=== PATIENT | male | born 1950 | race Caucasian/White ===

== ENCOUNTER → 2023-04-29 08:55 | Outpatient (REF) | payer MEDICARE, OTHER, SELFPAY ==
[2023-04-29 10:37] LABS: Uric Acid 9.4 mg/dl (3.5-8.5)
[2023-04-30 23:22] LABS: PSA Total 6.3 ng/mL (0.0-4.0)
== END ==
LOC: REG 08:55
PROVIDERS: ATTENDING PHYSICIAN Nurse Practitioner Adult Health
DX: M10.071 Idiopathic gout, right ankle and foot (principal); R97.20 Elevated prostate specific antigen [PSA]
CPT/HCPCS: 36415; 84153; 84154; 84550

== ENCOUNTER → 2023-06-15 13:19 | Outpatient (REF) | payer MEDICARE, OTHER, SELFPAY | LOC: CLAB 13:19 | PROVIDERS: ATTENDING PHYSICIAN Specialist | DX: R97.20 Elevated prostate specific antigen [PSA] (principal) | CPT/HCPCS: 88305; 88344 ==

== ENCOUNTER → 2023-07-02 10:38 | Outpatient (REF) | payer MEDICARE, OTHER, SELFPAY | LOC: MRI 10:38 | PROVIDERS: ATTENDING PHYSICIAN Specialist; FAMILY PHYSICIAN Nurse Practitioner Adult Health | DX: C61 Malignant neoplasm of prostate (principal) | CPT/HCPCS: 72197; A9575 ==

== ENCOUNTER → 2023-07-23 11:06 | Outpatient (REF) | payer MEDICARE, OTHER, SELFPAY ==
[2023-07-23 12:08] LABS: % Basophils 1.6 % (0-2); % Lymphocytes 36.3 % (20.5-51.1); % Neutrophils 48.1 % (42.2-75.2); Absolute Basophils 0.1 10^3/uL (0-0.2); Absolute Eosinophils 0.1 10^3/uL (0-0.7); Absolute Immature Granulocytes 0.1 10^3/uL (0-0.05); Absolute Lymphocytes 1.8 10^3/uL (1.2-3.4); Absolute Monocytes 0.5 10^3/uL (0.1-0.6); Absolute Neutrophils 2.4 10^3/uL (1.4-6.5); Hematocrit 51.7 % (39.0-52.0); Hemoglobin 16.9 g/dL (13.0-18.0); Mean Corp Hgb Conc. 32.7 g/dL (33.0-37.0); Mean Corpuscular Hgb 30.8 pg (27.0-31.0); Mean Corpuscular Volume 94.2 fL (80.0-94.0); Mean Platelet Volume 10.3 fL (7.4-10.4); Nucleated Red Blood Cells % 0 % (-); Platelet Count 187 10^3/uL (130-400); Red Blood Cell Count 5.49 10^6/uL (4.70-6.10); Red Cell Dist. Width 12.9 % (11.5-14.5)
[2023-07-23 12:34] LABS: ALT (SGPT) 44 U/L (0-50); AST (SGOT) 38 U/L (17-59); Albumin 4.1 g/dl (3.5-5.0); Alkaline Phosphatase 72 U/L (38-126); Blood Urea Nitrogen 17 mg/dl (9-20); Calcium 9.8 mg/dl (8.4-10.2); Carbon Dioxide 29 mmol/L (22-30); Chloride 106 mmol/L (98-107); Direct Bilirubin 0.3 mg/dl (0.0-0.4); Glucose 102 mg/dl (70-99); HDL Cholesterol 57 mg/dl; LDL Cholesterol, Calculated 21 mg/dl; Potassium 4.7 mmol/L (3.5-5.1); Sodium 142 mmol/L (135-145); Total Bilirubin 0.6 mg/dl (0.2-1.3); Total Cholesterol 104 mg/dl (50-199); Total Protein 6.6 g/dl (6.3-8.2); Triglyceride 131 mg/dl (10-149); Uric Acid 5.6 mg/dl (3.5-8.5); Very Low Density Lipoprotein 26 mg/dl (0-30); eGFR > 60.00
[2023-07-23 12:55] LABS: TSH Reflex To Free T4 1.05 uIU/ml (0.47-4.68)
[2023-07-23 14:24] LABS: Glycohemoglobin (HgbA1c) 5.4 % (4.0-5.6)
== END ==
LOC: REG 11:06
PROVIDERS: ATTENDING PHYSICIAN Internal Medicine Cardiovascular Disease; FAMILY PHYSICIAN Nurse Practitioner Adult Health; REFERRING PHYSICIAN Specialist
DX: I25.10 Atherosclerotic heart disease of native coronary artery without angina pectoris (principal); Z98.890 Other specified postprocedural states; Z95.5 Presence of coronary angioplasty implant and graft; Z78.9 Other specified health status; R73.01 Impaired fasting glucose; M10.071 Idiopathic gout, right ankle and foot; I10 Essential (primary) hypertension; E55.9 Vitamin D deficiency, unspecified; Z79.899 Other long term (current) drug therapy; Z13.29 Encounter for screening for other suspected endocrine disorder; Z13.220 Encounter for screening for lipoid disorders; Z00.00 Encounter for general adult medical examination without abnormal findings; R97.20 Elevated prostate specific antigen [PSA]; R73.03 Prediabetes
CPT/HCPCS: 36415; 80053; 80061; 80076; 82306; 83036; 84443; 84550; 85025

== ENCOUNTER 2023-08-17 06:12 | Inpatient (IN) | payer MEDICARE, OTHER, SELFPAY ==
[2023-08-13 10:31] VITALS: BMI 27.5
[2023-08-13 11:51] LABS: INR 1.06; PT 13.6 Sec (11.4-14.6)
[2023-08-13 11:52] LABS: APTT 27.7 Sec (23.4-35.0)
[2023-08-17] VITALS (16 sets, daily range): BP systolic 113–178; BP diastolic 59–95; BMI 27.5
[2023-08-17] MEDS: NORMOSOL-R 1000 IV (06:40)
[2023-08-17] MEDS: NEOMYCIN ENEMA 1 BOTTLE RECTAL (06:47)
--- NOTE | 2023-08-17 09:30 | W.PN.ADMIT ---
Progress Note - Admit
Progress Note - Admit
pt underwent RPP
rectal repair performed
admit to tele per cardiology request
npo/antibx
[2023-08-17 10:12] LABS: Mean Corp Hgb Conc. 34.1 g/dL (33.0-37.0); Mean Corpuscular Volume 90.9 fL (80.0-94.0); Mean Platelet Volume 9.6 fL (7.4-10.4); Platelet Count 154 10^3/uL (130-400); Red Blood Cell Count 4.84 10^6/uL (4.70-6.10); Red Cell Dist. Width 12.7 % (11.5-14.5); White Blood Cell Count 9.1 10^3/uL (4.8-10.8)
[2023-08-17 10:25] LABS: Blood Urea Nitrogen 11 mg/dl (9-20); Calcium 8.2 mg/dl (8.4-10.2); Carbon Dioxide 24 mmol/L (22-30); Chloride 104 mmol/L (98-107); Estimated Creatinine Clearance 73 ml/min; Glucose 132 mg/dl (70-99); Potassium 4.9 mmol/L (3.5-5.1); Sodium 137 mmol/L (135-145); eGFR > 60.00
[2023-08-17] MEDS: NSS with KCL 20 MEQ 1000 IV ×2 (10:28→20:02)
--- NOTE | 2023-08-17 12:37 | PTCARENOTE ---
Pt arrived to [facility] from PACU s/p prostatectomy. Pt has Son in place draining yellow/green urine, pen jenny drain with 4x4 and abd pads over top with tape. IVF infusing, 2L NC satting 96%. Pt states no pain at this time. Bed locked in lowest
position, call luis within reach, pt and oriented to call luis and room.
[2023-08-17] MEDS: TORADOL 15 MG IV ×2 (15:14→21:19)
[2023-08-17] MEDS: ACULAR 0.5% EYE DROPS 1 DROP LEFT EYE ×2 (17:42→20:02)
--- NOTE | 2023-08-17 18:01 | W.PN.UPDATE ---
Update Note
Progress Note Update
Saw patient briefly postoperatively. He is feeling well. He is having no chest pain. He is not short of breath.
No acute events on telemetry.
Resumption of aspirin per urology.
[2023-08-17] MEDS: COLACE 100 MG PO (20:01)
[2023-08-17] MEDS: ASPIR LOW (ENTERIC COATED) 81 MG PO (21:19)
[2023-08-18 03:45] VITALS: BP 141/69
--- NOTE | 2023-08-18 03:45 | PTCARENOTE ---
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
[2023-08-18] MEDS: TORADOL 15 MG IV ×3 (05:34→21:56)
[2023-08-18] MEDS: NSS with KCL 20 MEQ 1000 IV (05:36)
[2023-08-18 05:41] LABS: Hematocrit 41.6 % (39.0-52.0); Hemoglobin 13.9 g/dL (13.0-18.0); Mean Corp Hgb Conc. 33.4 g/dL (33.0-37.0); Mean Corpuscular Volume 92.7 fL (80.0-94.0); Mean Platelet Volume 9.8 fL (7.4-10.4); Platelet Count 155 10^3/uL (130-400); Red Blood Cell Count 4.49 10^6/uL (4.70-6.10); Red Cell Dist. Width 12.4 % (11.5-14.5); White Blood Cell Count 9.7 10^3/uL (4.8-10.8)
--- NOTE | 2023-08-18 06:25 | W.PN.UPDATE ---
Update Note
Progress Note Update
K level is 6.4 this am, patient currently on IVF with KCL 20meq will d/c. Lokelma 10g ordered and will repeat bmp in few hrs.
[2023-08-18 06:28] LABS: Blood Urea Nitrogen 16 mg/dl (9-20); Carbon Dioxide 22 mmol/L (22-30); Chloride 108 mmol/L (98-107); Estimated Creatinine Clearance 73 ml/min; Glucose 125 mg/dl (70-99); Magnesium 2.5 mg/dl (1.6-2.3); Potassium 6.4 mmol/L (3.5-5.1); Sodium 137 mmol/L (135-145); eGFR > 60.00
[2023-08-18] MEDS: LOKELMA 10 GRAM PO (06:32)
[2023-08-18 07:10] VITALS: BP 142/72
--- NOTE | 2023-08-18 07:41 | W.PN.URO.CBU ---
Today's Communication / Plan
-
UOOB/clear liquid diet
recheck K
cardiology following
wound checks/antibx and drain
Assessment / Plan
-
s/p RPP with rectal repair
pt looks great
with rectal repair- want to avoid any bowel stimulation
will recheck K/stop IVF with K/continue tele
clear liquid diet
continue rocephin
UOOB/ambulate
continue wound checks and drain
cardiology following
Diagnosis
-
Date of Service: August 18, 2023
-
Patient Diagnosis:
prostate cancer
Post Op Day:
RPP 08/16- rectal repair
Subjective
-
pt looks and feels great
urine clear
hgb stable
+ flatus
pt has some ? arrythmia on tele- K level up to 6- was given lokema- resulted in small loose bowel movement
dressing removed- wound looks good- c/d/i- no stool drainage from wound or drain
Objective
-
Vital Signs
Temp Pulse Resp BP Pulse Ox
97.6 F 60 17 142/72 96
08/18/23 07:10 08/18/23 07:10 08/18/23 07:10 08/18/23 07:10 08/18/23 07:10
Intake and Output
08/17/23 08/18/23 08/19/23
06:59 06:59 06:59
Intake Total 1370 / 1370
Output Total 1950 / 1950
Balance -580 / -580
Intake:
Oral fluids 120 / 120
IV fluids (Total) 1250 / 1250
NSS with KCL 20 MEQ 20 meq In 1 175 / 175
,000 ml @ 100 mls/hr IV .Q10H
VIANCA Rx#:[id number]
normosol 75 / 75
Output:
Urine, Mathew 1949
Laboratory Results
08/18/23 05:00
Review of Systems
-
Constitutional: Fatigue
Respiratory: No Symptoms
Cardiac: No Symptoms
Abdomen/GI: No Symptoms
Physical Exam
-
General - well developed, well nourished, no acute distress
Abdomen - soft, non-tender, positive bowel sounds
Genitalia - normal- mathew in place
Rectal - normal
Skin - warm & dry with no rash
Neuro - AOx3, no motor deficits
Extremities - no clubbing, no cyanosis, no edema
Incision - clean, dry- madalyn in place
[2023-08-18] MEDS: VITAMIN D3 (cholecalciferol) 10 MCG PO (08:21)
[2023-08-18] MEDS: PROTONIX 40 MG PO (08:21)
[2023-08-18] MEDS: ZYLOPRIM 200 MG PO (08:21)
[2023-08-18] MEDS: DETROL LA 4 MG PO (08:21)
[2023-08-18] MEDS: ZYRTEC 10 MG PO (08:22)
[2023-08-18] MEDS: COSOPT EYE DROPS 1 DROP LEFT EYE (08:22)
[2023-08-18] MEDS: PRED FORTE 1% EYE DROPS 1 DROP LEFT EYE (08:22)
[2023-08-18] MEDS: ACULAR 0.5% EYE DROPS 1 DROP LEFT EYE ×3 (08:22→20:25)
[2023-08-18] MEDS: ZESTRIL 10 MG PO (08:22)
[2023-08-18] MEDS: COLACE 100 MG PO ×2 (08:22→20:24)
[2023-08-18 11:20] VITALS: BP 118/57
[2023-08-18] MEDS: STERILE WATER FOR INJECTION 10 ML IV (11:29)
[2023-08-18] MEDS: ROCEPHIN 1000 MG IV (11:30)
[2023-08-18 11:48] LABS: Blood Urea Nitrogen 17 mg/dl (9-20); Carbon Dioxide 23 mmol/L (22-30); Chloride 105 mmol/L (98-107); Estimated Creatinine Clearance 84 ml/min; Glucose 118 mg/dl (70-99); Potassium 4.8 mmol/L (3.5-5.1); Sodium 135 mmol/L (135-145); eGFR > 60.00
--- NOTE | 2023-08-18 14:54 | CM ---
met with patient and his at bedside.patient lives with spouse in [place] at [facility].he has a walk in shower but no dme..he amb i and is i with his adl.his pcp is [facility] .he uses [facility] in
[place].he has never had a vn at home or been in ip rehab.
patient is sp radical prostatectomy pod#1,iv rocephin,tolerating clear liquids,has mathew catheter and madalyn drain.cards following.referral called to [facility] for mathew and wound care.patient signed imm letter.Plan:dc home with [facility].
[2023-08-18 15:45] VITALS: BP 122/67
[2023-08-18 20:05] VITALS: BP 123/67
[2023-08-18] MEDS: ASPIR LOW (ENTERIC COATED) PO (22:00)
[2023-08-18 23:04] VITALS: BP 124/68
--- NOTE | 2023-08-19 01:37 | PTCARENOTE ---
22:00 pt refusing his asa this evening, verbalizing he received in the morning. Orders reviewed with pt and educated that it does not appear as an am med that he received. 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
[2023-08-19 04:30] VITALS: BP 119/65
[2023-08-19] MEDS: TORADOL 15 MG IV (05:28)
[2023-08-19 05:41] LABS: Hematocrit 40.3 % (39.0-52.0); Hemoglobin 13.2 g/dL (13.0-18.0); Mean Corp Hgb Conc. 32.8 g/dL (33.0-37.0); Mean Corpuscular Hgb 30.6 pg (27.0-31.0); Mean Corpuscular Volume 93.5 fL (80.0-94.0); Platelet Count 148 10^3/uL (130-400); Red Blood Cell Count 4.31 10^6/uL (4.70-6.10); Red Cell Dist. Width 12.5 % (11.5-14.5); White Blood Cell Count 8.5 10^3/uL (4.8-10.8)
[2023-08-19 06:00] VITALS: BMI 27.2
[2023-08-19 06:02] LABS: Blood Urea Nitrogen 18 mg/dl (9-20); Calcium 8.8 mg/dl (8.4-10.2); Carbon Dioxide 27 mmol/L (22-30); Chloride 107 mmol/L (98-107); Estimated Creatinine Clearance 73 ml/min; Glucose 86 mg/dl (70-99); Potassium 5.1 mmol/L (3.5-5.1); Sodium 137 mmol/L (135-145); eGFR > 60.00
--- NOTE | 2023-08-19 07:34 | W.PN.URO.CBU ---
Today's Communication / Plan
-
continue ambulation and clears
Assessment / Plan
-
s/p RPP with rectal repair
pt looks great
with rectal repair- want to avoid any bowel stimulation
K normalized
continue clears/ambulation and antibx- with bowel movement- begin low residue diet
Diagnosis
-
Date of Service: August 19, 2023
-
Patient Diagnosis:
prostate cancer
Post Op Day:
RPP 08/16- rectal repair
Subjective
-
pt doing well
eating- flatus- no bowel movement since yesterday
vss/ labs ok including serial k checks
wound is dry
Objective
-
Vital Signs
Temp Pulse Resp BP Pulse Ox
98.1 F 61 20 119/65 95
08/19/23 04:30 08/19/23 04:30 08/19/23 04:30 08/19/23 04:30 08/19/23 04:30
Intake and Output
08/18/23 08/19/23 08/20/23
06:59 06:59 06:59
Intake Total 1370 / 1370 1680 / 1680
Output Total 1949
Balance -580 / -580 -520 / -520
Intake:
Oral fluids 120 / 120 1680 / 1680
IV fluids (Total) 1250 / 1250
NSS with KCL 20 MEQ 20 meq In 1 175 / 175
,000 ml @ 100 mls/hr IV .Q10H
VIANCA Rx#:[id number]
normosol 75 / 75
Output:
Urine, Mathew 1949 / 2199
Laboratory Results
08/19/23 05:05
08/19/23 05:05
Review of Systems
-
Constitutional: No Symptoms
Respiratory: No Symptoms
Cardiac: No Symptoms
Abdomen/GI: No Symptoms
Physical Exam
-
General -no acute distress
Abdomen - soft, non-tender, positive bowel sounds
Genitalia - normal- mathew in place
Rectal - normal
Skin - warm & dry with no rash
Neuro - AOx3, no motor deficits
Extremities - no clubbing, no cyanosis, no edema
Incision - clean, dry- drain in place
[2023-08-19 07:49] VITALS: BP 140/75
[2023-08-19] MEDS: ZESTRIL 10 MG PO (08:41)
[2023-08-19] MEDS: DETROL LA 4 MG PO (08:41)
[2023-08-19] MEDS: COLACE 100 MG PO ×2 (08:41→20:27)
[2023-08-19] MEDS: COSOPT EYE DROPS 1 DROP LEFT EYE (08:41)
[2023-08-19] MEDS: ZYLOPRIM 200 MG PO (08:41)
[2023-08-19] MEDS: VITAMIN D3 (cholecalciferol) 10 MCG PO (08:41)
[2023-08-19] MEDS: ASPIR LOW (ENTERIC COATED) 81 MG PO (08:41)
[2023-08-19] MEDS: ZYRTEC 10 MG PO (08:41)
[2023-08-19] MEDS: PROTONIX 40 MG PO (08:41)
[2023-08-19] MEDS: ACULAR 0.5% EYE DROPS 1 DROP LEFT EYE ×3 (08:42→21:09)
[2023-08-19] MEDS: PRED FORTE 1% EYE DROPS 1 DROP LEFT EYE (08:42)
--- NOTE | 2023-08-19 09:07 | W.PN.CD ---
Today's Communication / Plan
-
62 year old male known to me from previous outpatient visits. Patietntwith history of multivessel coronary stenting, AAA repair,who underwent prostate sturgery
CAD . History of multivessel stenting
- stable without angina
-continue ASA
.
Post urologic surgery - Radical perineal prostatectomy with seminal
vesiculectomy and bladder neck reconstruction. 08/17/23
- post op care per urology
Impression / Plan
-
doing well
stable on telemetry
back on aspirin and tolerating well
call if additional assistance required
Physical Exam
Vital Signs/Labs
Vital Signs
Temp Pulse Resp BP Pulse Ox
97.6 F 62 18 140/75 95
08/19/23 07:49 08/19/23 07:49 08/19/23 07:49 08/19/23 07:49 08/19/23 07:49
08/18/23 08/19/23 08/20/23
06:59 06:59 06:59
Actual Weight 76.345 kg
08/19/23 05:05
08/19/23 05:05
PT 13.6 Sec (11.4-14.6) 08/13/23 08:59
INR 1.06 08/13/23 08:59
APTT 27.7 Sec (23.4-35.0) 08/13/23 08:59
Magnesium 2.5 mg/dl (1.6-2.3) H 08/18/23 05:00
Physical Exam
Constitutional: No acute distress
Cardiovascular: Rhythm & rate is regular
Respiratory: Respiratory effort normal
Neuro/Psych: Alert
Other: Other (no edema)
Data Reviewed
-
Date of Service: August 19, 2023
Medical Decision Making: Reviewed Test Results
Medical Tests (PFT, Pathology etc): Report Reviewed by me
Labs: Labs Reviewed by me
[2023-08-19] MEDS: ROCEPHIN 1000 MG IV (12:10)
[2023-08-19] MEDS: STERILE WATER FOR INJECTION 10 ML IV (12:10)
[2023-08-19 12:17] VITALS: BP 155/84
--- NOTE | 2023-08-19 14:15 | VNURNOTE ---
Home Health Liaison met with patient at 1200 to discuss [facility] nurse visits, schedule and homebound status. Patient is agreeable and understands that visits at home will be 2-3 x per week to assess and teach medical management and catheter care.
[facility] brochure provided with contact information. Patient is aware that [facility] will contact him for start of care in 1-2 days after discharge from .
[facility] referral completed in [facility].
[2023-08-19] MEDS: MOTRIN 400 MG PO ×2 (15:01→21:08)
[2023-08-19 15:47] VITALS: BP 136/75
--- NOTE | 2023-08-19 16:03 | CM ---
Addendum entered by Allie Martin 08/19/23 16:06:
Plan: discharge to home with home health services with [facility]
Original Note:
Chart reviewed: s/p RPP with rectal repair; continue ambulation and clear liquids;
CM will continue to monitor for DC needs
[2023-08-19 20:00] VITALS: BP 135/75
[2023-08-19 22:55] VITALS: BP 148/86
[2023-08-20 03:04] VITALS: BP 113/70
[2023-08-20 06:00] VITALS: BMI 26.9
--- NOTE | 2023-08-20 06:41 | W.PN.URO.CBU ---
Today's Communication / Plan
-
likely discharge later today
Assessment / Plan
-
s/p RPP with rectal repair
pt looks great
tolerating low residue diet/bowel movement/ no evid of wound leak
will observe until lunch today- if stable- to remove madalyn and discharge home
all instructions reviewed
Diagnosis
-
Date of Service: August 20, 2023
-
Patient Diagnosis:
prostate cancer
Post Op Day:
RPP 08/16- rectal repair
Subjective
-
pt doing great
did have a bowel movement yesterday
urine clear
wound looks great with minimal to no drainage
Objective
-
Vital Signs
Temp Pulse Resp BP Pulse Ox
98.0 F 62 20 113/70 97
08/20/23 03:04 08/20/23 03:04 08/20/23 03:04 08/20/23 03:04 08/20/23 03:04
Intake and Output
08/18/23 08/19/23 08/20/23
06:59 06:59 06:59
Intake Total 1370 / 1370 1680 / 1680 2400 / 2400
Output Total 1949 / 1949 220 / 2200 2680 / 2680
Balance -580 / -580 -520 / -520 -280 / -280
Intake:
Oral fluids 120 / 120 1680 / 1680 2400 / 2400
IV fluids (Total) 1250 / 1250
NSS with KCL 20 MEQ 20 meq In 1 175 / 175
,000 ml @ 100 mls/hr IV .Q10H
VIANCA Rx#:[id number]
normosol 75 / 75
Output:
Urine, Mathew 1949 / 1949 2200 / 2200 2380 / 2380
Urine, Voided 300 / 300
Laboratory Results
08/19/23 05:05
08/19/23 05:05
Review of Systems
-
Constitutional: Fatigue
Respiratory: No Symptoms
Cardiac: No Symptoms
Abdomen/GI: No Symptoms
Physical Exam
-
General - no acute distress
Abdomen - soft, non-tender, positive bowel sounds, no CVAT, no incisional pain or distention
Genitalia - normal- mathew in place
Rectal - normal
Skin - warm & dry with no rash
Neuro - AOx3, no motor deficits
Extremities - no clubbing, no cyanosis, no edema
Incision - clean, dry
[2023-08-20 07:10] VITALS: BP 135/75
[2023-08-20] MEDS: ZESTRIL 10 MG PO (08:36)
[2023-08-20] MEDS: ACULAR 0.5% EYE DROPS 1 DROP LEFT EYE (08:36)
[2023-08-20] MEDS: COLACE 100 MG PO (08:37)
[2023-08-20] MEDS: DETROL LA 4 MG PO (08:38)
[2023-08-20] MEDS: ZYLOPRIM 200 MG PO (08:38)
[2023-08-20] MEDS: ZYRTEC 10 MG PO (08:38)
[2023-08-20] MEDS: PRED FORTE 1% EYE DROPS 1 DROP LEFT EYE (08:39)
[2023-08-20] MEDS: COSOPT EYE DROPS 1 DROP LEFT EYE (08:39)
[2023-08-20] MEDS: PROTONIX 40 MG PO (08:39)
[2023-08-20] MEDS: VITAMIN D3 (cholecalciferol) 10 MCG PO (08:39)
[2023-08-20] MEDS: ASPIR LOW (ENTERIC COATED) 81 MG PO (08:39)
[2023-08-20] MEDS: STERILE WATER FOR INJECTION 10 ML IV (10:38)
[2023-08-20] MEDS: ROCEPHIN 1000 MG IV (10:39)
[2023-08-20] MEDS: MOTRIN 400 MG PO (12:42)
--- NOTE | 2023-08-20 14:13 | W.DS.TRANS ---
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
-
Discharge Instructions:
Sleep Apnea Risk Intermediate
Discharge Diagnosis/Procedures you had a radical perineal prostatectomy
Diet Low Residue
Activity No strenuous activity
Additional Activity no lifting over 10lbs
Driving Restrictions No driving
Bathing Restrictions shower after every bowel movement
Other Services VN
Instructions:
Stand-Alone Forms:
Changes to Home Medications: No
Discharge Medications:
DC Medications w/original date entered in [employer]
Aspirin Enteric Coated 81 mg PO DAILY Blood Clot Prevention/Tx 08/18/13
cholecalciferol (vitamin D3) 10 mcg (400 unit) tablet (Vitamin D3) 400 unit PO DAILY Supplement 08/18/13
nitroglycerin 0.4 mg sublingual tablet 0.4 mg sublingual [id number] PRN chest pain #25 tabs 08/19/13
Ketorolac Tromethamine 1 drp BOTH EYES TID Eye Condition 08/12/23
allopurinol 200 mg tablet 200 mg PO DAILY Gout 08/12/23
cetirizine 10 mg tablet (Zyrtec) 10 mg PO DAILY Allergies 08/12/23
coenzyme Q10 100 mg capsule (Co Q-10) 100 mg PO DAILY Supplement 08/12/23
dorzolamide 22.3 mg-timolol 6.8 mg/mL eye drops 1 drp ophthalmic (eye) DAILY Eye Condition 08/12/23
evolocumab 140 mg/mL subcutaneous syringe (Repatha Syringe) 140 mg SC Q2W High Cholesterol 08/12/23
lisinopril 10 mg tablet 10 mg PO DAILY Blood Pressure 08/12/23
omeprazole 20 mg capsule,delayed release 20 mg PO DAILY Gastrointestinal Issue 08/12/23
prednisolone acetate 1 % eye drops,suspension 1 drp ophthalmic (eye) DAILY Eye Condition 08/12/23
polyethylene glycol 3350 17 gram oral powder packet (Miralax) 17 g PO DAILY #30 ea 08/20/23
sulfamethoxazole 400 mg-trimethoprim 80 mg tablet (Bactrim) 1 tab PO HS #14 tabs 08/20/23
tramadol 50 mg tablet 50 mg PO Q8H PRN Pain #20 tabs 08/20/23
Home Medication Changes
Pending Results: No
--- NOTE | 2023-08-20 14:21 | CM ---
met with patient at bedside.he is sp radical prostatectomy. he is tolerating a low residue diet.drain removed.imm letter signed.patient is stable for discharge home with vn.
[2023-08-20 15:00] VITALS: BP 129/84
== END 2023-08-20 15:13 | disposition home or self-care (01) | DRG 708 ==
LOC: 2 SOUTH 06:12
PROVIDERS: Nurse Practitioner Family; ADMITTING PHYSICIAN Specialist; FAMILY PHYSICIAN Nurse Practitioner Adult Health
PROC: 0VT00ZZ Resection of Prostate, Open Approach (ICD-10-PCS; 2023-08-17)
PROC: 0TQC0ZZ Repair Bladder Neck, Open Approach (ICD-10-PCS; 2023-08-17)
PROC: 0VT30ZZ Resection of Bilateral Seminal Vesicles, Open Approach (ICD-10-PCS; 2023-08-17)
DX: C61 Malignant neoplasm of prostate (principal)
CPT/HCPCS: 88305; 88309; 88332; 36415; 80048; 83735; 85027; 85610; 85730; 86850; 86900; 86901; 88331; 88344; 93005; A4648

== ENCOUNTER 2023-10-07 06:22 | Outpatient (RCR) | payer MEDICARE, OTHER, SELFPAY | END 2023-10-07 23:59 | disposition home or self-care (01) | LOC: RPT 06:22 | PROVIDERS: ATTENDING PHYSICIAN Specialist; FAMILY PHYSICIAN Nurse Practitioner Adult Health | DX: R39.81 Functional urinary incontinence (principal); M62.89 Other specified disorders of muscle; C61 Malignant neoplasm of prostate; Z98.890 Other specified postprocedural states; Z73.6 Limitation of activities due to disability | CPT/HCPCS: 97162; 97530 ==

== ENCOUNTER 2023-11-18 10:07 | Outpatient (RCR) | payer MEDICARE, OTHER, SELFPAY | END 2023-11-18 23:59 | disposition home or self-care (01) | LOC: RPT 10:07 | PROVIDERS: ATTENDING PHYSICIAN Specialist; FAMILY PHYSICIAN Nurse Practitioner Adult Health | DX: R39.81 Functional urinary incontinence (principal); M62.89 Other specified disorders of muscle; C61 Malignant neoplasm of prostate; Z73.6 Limitation of activities due to disability | CPT/HCPCS: 97110; 97140; 97530 ==

== ENCOUNTER → 2023-12-02 11:01 | Outpatient (REF) | payer MEDICARE, OTHER, SELFPAY ==
[2023-12-02 12:25] LABS: PSA, Total - Diagnostic < 0.06 ng/ml (0.0-4.0)
== END ==
LOC: REG 11:01
PROVIDERS: ATTENDING PHYSICIAN Specialist; FAMILY PHYSICIAN Nurse Practitioner Adult Health
DX: C61 Malignant neoplasm of prostate (principal)
CPT/HCPCS: 36415; 84153

== ENCOUNTER 2023-12-16 09:54 | Outpatient (RCR) | payer MEDICARE, OTHER, SELFPAY | END 2023-12-16 23:59 | disposition home or self-care (01) | LOC: RPT 09:54 | PROVIDERS: ATTENDING PHYSICIAN Specialist; FAMILY PHYSICIAN Nurse Practitioner Adult Health | DX: R39.81 Functional urinary incontinence (principal); M62.89 Other specified disorders of muscle; C61 Malignant neoplasm of prostate; Z73.6 Limitation of activities due to disability | CPT/HCPCS: 97110; 97140; 97530 ==

== ENCOUNTER 2023-12-30 09:51 | Outpatient (RCR) | payer MEDICARE, OTHER, SELFPAY | END 2023-12-30 13:22 | disposition home or self-care (01) | LOC: RPT 09:51 | PROVIDERS: ATTENDING PHYSICIAN Specialist; FAMILY PHYSICIAN Nurse Practitioner Adult Health | DX: R39.81 Functional urinary incontinence (principal); M62.89 Other specified disorders of muscle; C61 Malignant neoplasm of prostate; Z73.6 Limitation of activities due to disability; Z90.79 Acquired absence of other genital organ(s) | CPT/HCPCS: 97110; 97530 ==

== ENCOUNTER → 2024-05-02 11:18 | Outpatient (REF) | payer MEDICARE, OTHER, SELFPAY ==
[2024-05-02 13:13] LABS: PSA, Total - Diagnostic < 0.06 ng/ml (0.0-4.0)
== END ==
LOC: REG 11:18
PROVIDERS: ATTENDING PHYSICIAN Specialist; FAMILY PHYSICIAN Nurse Practitioner Adult Health
DX: C61 Malignant neoplasm of prostate (principal)
CPT/HCPCS: 36415; 84153

== ENCOUNTER → 2024-08-04 08:30 | Outpatient (REF) | payer MEDICARE, OTHER, SELFPAY ==
[2024-08-04 09:33] LABS: % Basophils 1.1 % (0-2); % Eosinophils 1.1 % (0-6); % Immature Granulocytes 2.3 % (0-0.5); % Lymphocytes 29.9 % (20.5-51.1); % Monocytes 8.8 % (1.7-9.3); % Neutrophils 56.8 % (42.2-75.2); Absolute Basophils 0.1 10^3/uL (0-0.2); Absolute Eosinophils 0.1 10^3/uL (0-0.7); Absolute Immature Granulocytes 0.2 10^3/uL (0-0.05); Absolute Lymphocytes 2.3 10^3/uL (1.2-3.4); Absolute Monocytes 0.7 10^3/uL (0.1-0.6); Absolute Neutrophils 4.3 10^3/uL (1.4-6.5); Hematocrit 51.8 % (39.0-52.0); Hemoglobin 17.2 g/dL (13.0-18.0); Mean Corp Hgb Conc. 33.2 g/dL (33.0-37.0); Mean Corpuscular Hgb 31.2 pg (27.0-31.0); Mean Corpuscular Volume 93.8 fL (80.0-94.0); Mean Platelet Volume 10.6 fL (7.4-10.4); Nucleated Red Blood Cells % 0 % (-); Platelet Count 147 10^3/uL (130-400); Red Blood Cell Count 5.52 10^6/uL (4.70-6.10); Red Cell Dist. Width 13.2 % (11.5-14.5); White Blood Cell Count 7.5 10^3/uL (4.8-10.8)
[2024-08-04 09:37] LABS: INR 0.94; PT 12.8 Sec (11.4-14.6)
[2024-08-04 09:38] LABS: APTT 27.4 Sec (23.4-35.0)
== END ==
LOC: REG 08:30
PROVIDERS: ATTENDING PHYSICIAN Internal Medicine Cardiovascular Disease
DX: I25.10 Atherosclerotic heart disease of native coronary artery without angina pectoris (principal); T14.8XXA Other injury of unspecified body region, initial encounter
CPT/HCPCS: 36415; 85025; 85610; 85730

== ENCOUNTER → 2024-11-07 07:51 | Outpatient (REF) | payer MEDICARE, OTHER, SELFPAY ==
[2024-11-07 09:59] LABS: PSA, Total - Diagnostic < 0.06 ng/ml (0.0-4.0)
== END ==
LOC: REG 07:51
PROVIDERS: ATTENDING PHYSICIAN Specialist; FAMILY PHYSICIAN Nurse Practitioner Adult Health
DX: C61 Malignant neoplasm of prostate (principal)
CPT/HCPCS: 36415; 84153

== ENCOUNTER → 2024-11-14 12:06 | Outpatient (REF) | payer MEDICARE, OTHER, SELFPAY ==
[2024-11-14 13:24] LABS: Hematocrit 53.6 % (39.0-52.0); Hemoglobin 17.7 g/dL (13.0-18.0); Mean Corp Hgb Conc. 33.0 g/dL (33.0-37.0); Mean Corpuscular Volume 94.2 fL (80.0-94.0); Nucleated Red Blood Cells % 0 % (-); Platelet Count 148 10^3/uL (130-400); Red Cell Dist. Width 12.7 % (11.5-14.5)
[2024-11-14 13:55] LABS: ALT (SGPT) 34 U/L (0-50); AST (SGOT) 32 U/L (17-59); Albumin 4.6 g/dl (3.5-5.0); Alkaline Phosphatase 75 U/L (38-126); Calcium 10.2 mg/dl (8.4-10.2); Carbon Dioxide 29 mmol/L (22-30); Chloride 106 mmol/L (98-107); Glucose 93 mg/dl (70-99); HDL Cholesterol 57 mg/dl; LDL Cholesterol, Calculated 44 mg/dl; Potassium 5.2 mmol/L (3.5-5.1); Sodium 141 mmol/L (135-145); Total Protein 7.1 g/dl (6.3-8.2); Uric Acid 5.1 mg/dl (3.5-8.5); Very Low Density Lipoprotein 15 mg/dl (0-30); eGFR > 60.00
[2024-11-14 13:57] LABS: Glycohemoglobin (HgbA1c) 5.2 % (4.0-5.6)
[2024-11-14 14:04] LABS: Blood Urea Nitrogen 21 mg/dl (9-20)
[2024-11-14 14:12] LABS: Vitamin D, 25-OH*** 56.0 ng/mL (30-80)
== END ==
LOC: REG 12:06
PROVIDERS: ATTENDING PHYSICIAN Nurse Practitioner Adult Health
DX: Z00.00 Encounter for general adult medical examination without abnormal findings (principal); E78.00 Pure hypercholesterolemia, unspecified; R73.03 Prediabetes; E55.9 Vitamin D deficiency, unspecified
CPT/HCPCS: 36415; 80053; 80061; 82306; 83036; 84443; 84550; 85025

== ENCOUNTER 2024-11-29 11:48 | Emergency (ER) | payer MEDICARE, OTHER, SELFPAY ==
[2024-11-29 11:48] VITALS: BMI 25.0
[2024-11-29 11:54] VITALS: BP 137/82
--- NOTE | 2024-11-29 12:39 | ED.GENMED ---
History of Present Illness
General
Chief Complaint: Nose Bleed
Source: patient
Exam Limitations: none
Time Seen by Provider: 11/29/24 12:03
Nursing documentation reviewed up to this point in time: agreed with
History of Present Illness
History of Present Illness:
74 yr old male presents to the ED for evaluation of nose bleed. 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 He did have nosebleed 1 wk ago which resolved on its own. PT is on ASA only no other blood thinners.
Past History
Past History
ED Past Medical History: HTN
Social History
Tobacco: Former smoker
Alcohol: None
Drug: None
Personal:
Living: with family
Phy Exam
General Physical Exam
General Presentation: no apparent distress
General age: appears stated age
General Skin: warm and dry
General Habitus: normal
General Mental: alert
General Hydration: appears well hydrated
ENT Exam
ENT Exam: other (+ bleeding from right nares + clots )
Cardiovascular Exam
Cardiovascular Exam: regular rate/rhythm, no murmur and normal peripheral pulses
Pulmonary Exam
Pulmonary Exam: lungs clear and no respiratory distress
Neurological Exam
Neurological Exam: alert and oriented x3
Musculoskeletal Exam
Musculoskeletal Exam: full ROM
Skin Exam
Skin Exam: normal color and warm/dry
Psychiatric Exam
Psychiatric Exam: normal mood/affect
Course
Orders/Labs/Results
Orders:
Orders
11/29/24 12:37
Complete Blood Count/With Diff Urgent
Comprehensive Metabolic Panel Urgent
Vital Signs
Initial and Last Documented VS:
Initial Vital Signs
Temp Pulse Resp BP Pulse Ox
98.7 F 78 18 137/82 96
11/29/24 11:54 11/29/24 11:54 11/29/24 11:54 11/29/24 11:54 11/29/24 11:54
Last Documented Vital Signs
Temp Pulse Resp BP Pulse Ox
98.7 F 78 18 137/82 96
11/29/24 11:54 11/29/24 11:54 11/29/24 11:54 11/29/24 11:54 11/29/24 12:41
Procedures
Nosebleed
Drug treatment: Epinephrine
Treatment: other (Rapid Rhino)
Post treatment bleeding: none- good control
MDM/Problems Addressed
MDM/Problems Addressed:
As documented patient is a 74-year-old male presented with epistaxis from the right nares for the past 1 hour prior to arrival. He is on aspirin only. Patient has significant bleeding however bleeding was resolved after rapid Rhino was inserted.
Patient tolerated the procedure well. He did not want blood work which is reasonable as his vital signs are stable he is very well-appearing. Will DC with outpatient follow-up with ENT for packing removal in the next 2 days. Strict return
precautions reviewed.
*Pulse Oximetry
SaO2: 96
Oxygen Mode of Delivery: Room air
Patient hypoxic: no
*Critical Care Note
Total Time (30-74mins, 75-104mins- exclusive of procedures): Not Applicable
ED Attending Note
-
Portions of this chart may have been created with voice recognition software.� Occasional wrong word or��sound alike� substitutions may have occurred due to the inherent limitations of voice recognition software.
Discharge Plan
Departure
Patient Disposition: Home (Routine Discharge)
Date of Disposition: 11/29/24
Time of Disposition: 13:47
Patient with high blood pressure during this ER visit?: Yes
Condition: Fair
Covid-19: Not Applicable
Discharge Problem:
Acute anterior epistaxis
Instructions: Nosebleeds (DC), BLOOD PRESSURE
Prescriptions:
No Action
Aspirin Enteric Coated 81 MG
81 mg PO DAILY
cholecalciferol (vitamin D3) [Vitamin D3] 400 UNIT tablet
400 unit PO DAILY
nitroglycerin 0.4 MG tablet, sublingual
0.4 mg sublingual [id number] PRN (Reason: chest pain) Qty: 25 2RF
cetirizine [Zyrtec] 10 mg Tablet
10 mg PO DAILY
prednisolone acetate 1 % Drops,Suspension
1 drp OPHTHALMIC (EYE) DAILY
lisinopril 10 mg Tablet
10 mg PO DAILY
omeprazole 20 mg Capsule,Delayed Release(Dr/Ec)
20 mg PO DAILY
dorzolamide-timolol 22.3-6.8 mg/mL Drops
1 drp OPHTHALMIC (EYE) DAILY
coenzyme Q10 [Co Q-10] 100 mg Capsule
100 mg PO DAILY
Repatha Syringe 140 mg/mL Syringe
140 mg SC Q2W
allopurinol 200 mg Tablet
200 mg PO DAILY
Ketorolac Tromethamine
1 drp BOTH EYES TID
sulfamethoxazole-trimethoprim [Bactrim] 400-80 mg tablet
1 tab PO HS Qty: 14 0RF
tramadol 50 mg tablet
50 mg PO Q8H PRN (Reason: Pain) Qty: 20 0RF
polyethylene glycol 3350 [Miralax] 17 gram powder in packet
17 g PO DAILY Qty: 30 0RF
Rx Instructions:
get over the counter
Referrals:
Daniela Vasquez CRNP [Family Provider, General]
Mekhi Langford MD [Active, Otology]
Activity Restrictions/Additional Instructions:
As discussed keep packing in place until seen and eval by ENT. Please call to make to make an appointment for Wednesday for packing removal. Return if any worsening of symptoms
Interventions
Interventions:
*Risk Screen - Suicide Last Done: 11/29/24 11:54
*General Assessment Last Done: 11/29/24 11:54
*Neglect/Abuse Screening Last Done: 11/29/24 11:54
*ED- Fall Risk Assessment Last Done: 11/29/24 13:01
ED-EENT Assessment Last Done: 11/29/24 13:01
Discharge Date and Time
Print Language: [place] CITIZ[place]
== END 2024-11-29 13:59 | disposition home or self-care (01) ==
LOC: EMR 11:48
PROVIDERS: EMERGENCY PHYSICIAN Emergency Medicine; FAMILY PHYSICIAN Nurse Practitioner Adult Health
DX: R04.0 Epistaxis (principal); I10 Essential (primary) hypertension; Z87.891 Personal history of nicotine dependence; Z79.82 Long term (current) use of aspirin
CPT/HCPCS: 30901; 99282

== ENCOUNTER 2025-01-02 06:38 | Day surgery (SDC) | payer MEDICARE, OTHER, SELFPAY | END 2025-01-02 13:33 | disposition home or self-care (01) | LOC: GI 06:38 | PROVIDERS: ATTENDING PHYSICIAN Surgery | DX: Z12.11 Encounter for screening for malignant neoplasm of colon (principal); R19.5 Other fecal abnormalities; K57.30 Diverticulosis of large intestine without perforation or abscess without bleeding; K64.8 Other hemorrhoids; K56.699 Other intestinal obstruction unspecified as to partial versus complete obstruction; D12.0 Benign neoplasm of cecum; D12.3 Benign neoplasm of transverse colon; D12.4 Benign neoplasm of descending colon; K63.5 Polyp of colon; Z86.0100 Personal history of colon polyps, unspecified | CPT/HCPCS: 45385; 45381; 88305 ==